=== PATIENT | female | born 1970 | race Caucasian/White ===

== ENCOUNTER 2018-09-03 21:04 | Emergency (ER) | payer OTHER ==
[2018-09-03 21:14] VITALS: TEMP 98.3
--- NOTE | 2018-09-03 22:17 | C.PDOC ---
Addendum entered and electronically signed by Elton Benavidez MD 09/04/18 02:41: Disposition Clinical Impression: DUB (dysfunctional uterine bleeding), Uterine fibroid Disposition: HOME/ ROUTINE Disposition Time: 00:00 Condition: FAIR Additional Instructions: Please return if symptoms recur Instructions: Heavy Periods (DC), Uterine Fibroids (DC) Referrals: [facility] [Outside] [facility] [Outside] Stand Alone Forms: [employer] (Slovak) Original Note: History Of Present Illness 48 y/o F p/w vaginal bleeding x 1 month. States LMP June, then in July, period began and never ended. Reports 10 pads per day. Reports feeling lightheaded and generally weak and lower abdominal cramping. Denies fever, chills, chest pain, dsypnea, nausea, vomiting, dysuria. Had another 3 week period of bleeding months ago but resolved after 3 weeks, did not seek medical care at that time. <Maynor Gooden - Last Filed: 09/03/18 22:22> <Maynor Gooden - Last Filed: 09/03/18 22:22> <Elton Benavidez - Last Filed: 09/04/18 02:40> Time Seen by Provider: 09/03/18 21:23 Chief Complaint (Nursing): Female Genitourinary Past Medical History Vital Signs: Last Vital Signs Temp 98.3 F 09/03/18 21:11 Pulse 85 09/03/18 21:11 Resp 20 09/03/18 21:11 BP 130/82 09/03/18 21:11 Pulse Ox 98 09/03/18 21:11 - Medical History PMH: Asthma, Depression Surgical History: Appendectomy, Cholecystectomy - Social History Hx Tobacco Use: No Hx Alcohol Use: No Hx Substance Use: No - Immunization History Hx Tetanus Toxoid Vaccination: No Hx Influenza Vaccination: No Hx Pneumococcal Vaccination: No <Maynor Gooden - Last Filed: 09/03/18 22:22> Vital Signs: Last Vital Signs Temp 98.3 F 09/03/18 21:11 Pulse 70 09/04/18 00:54 Resp 16 09/04/18 00:54 BP 141/69 09/04/18 00:54 Pulse Ox 98 09/04/18 00:54 Family History: States: No Known Family Hx <Elton Benavidez - Last Filed: 09/04/18 02:40> Review Of Systems Except As Marked, All Systems Reviewed And Found Negative. Constitutional: Negative for: Fever Cardiovascular: Negative for: Chest Pain <Maynor Gooden - Last Filed: 09/03/18 22:22> Physical Exam - Physical Exam Additional Physical Exam Comments: Constitutional: No acute distress. Head: Normocephalic. Atraumatic. Eyes: PERRL. ENT: Moist mucous membranes. Neck: Supple. Cardiovascular: Regular rate. Radial pulse 2+ bilaterally. Chest: No tenderness. Respiratory: Clear to auscultation bilaterally. GI: Soft. Nontender. Nondistended. Back: No CVA tenderness. Musculoskeletal: No tenderness or swelling of extremities. Skin: No rash. Appears pale. Neurologic: Alert, no focal deficit. <Maynor Gooden - Last Filed: 09/03/18 22:22> ED Course And Treatment O2 Sat by Pulse Oximetry: 98 <Maynor Gooden Nancy - Last Filed: 09/03/18 22:22> - Laboratory Results Result Diagrams: 09/03/18 22:48 09/03/18 22:48 <Elton Benavidez - Last Filed: 09/04/18 02:40> Medical Decision Making Medical Decision Making: HR and BP unremarkable. Assess Hb/Hct and US. <Maynor Gooden - Last Filed: 09/03/18 22:22> Disposition <Maynor Gooden - Last Filed: 09/03/18 22:22> Counseled Patient/Family Regarding: Studies Performed, Diagnosis, Need For Followup - Disposition Disposition Time: 00:00 <Elton Benavidez - Last Filed: 09/04/18 02:40> - Disposition Referrals: [facility] [Outside] [facility] [Outside] Disposition: HOME/ ROUTINE Condition: FAIR Additional Instructions: Please return if symptoms recur Instructions: Heavy Periods (DC) Forms: [employer] (Slovak) - Clinical Impression Clinical Impression: DUB (dysfunctional uterine bleeding)
[2018-09-03 22:51] LABS: BASO # 0.1 K/uL (0.0-0.2); BASO % 1.3 % (0.0-2.0); EOS # 0.5 K/uL (0.0-0.7); EOS % 5.1 % (0.0-4.0); HEMOGLOBIN 10.2 g/dL (11.0-16.0); LYMPH # 3.1 K/uL (1.0-4.3); LYMPH % 33.2 % (20.0-40.0); MEAN CELL VOLUME 71.4 fL (81.0-99.0); MEAN CORPUSCULAR HEMOGLOBIN 22.2 pg (27.0-31.0); MEAN CORPUSCULAR HGB CONC 31.1 g/dL (33.0-37.0); MEAN PLATELET VOLUME 8.8 fL (7.2-11.7); MONO # 0.6 K/uL (0.0-0.8); MONO % 6.3 % (0.0-10.0); NEUT % 54.1 % (50.0-75.0); NRBC % 0.1 % (0.0-2.0); RBC 4.61 Mil/uL (3.80-5.20); RED CELL DISTRIBUTION WIDTH 16.2 % (11.5-14.5); WHITE BLOOD COUNT 9.3 K/uL (4.8-10.8)
[2018-09-03 22:53] LABS: HCG,QUALITATIVE URINE NEGATIVE (NEGATIVE)
[2018-09-03 23:01] LABS: SQUAMOUS EPITHIAL 9 /hpf (0-5); URINE BACTERIA RARE (<OCC); URINE BILIRUBIN NEGATIVE (NEGATIVE); URINE BLOOD 3+ (NEGATIVE); URINE CLARITY Hazy (Clear); URINE COLOR Red (YELLOW); URINE GLUCOSE (UA) NORMAL (Normal); URINE LEUKOCYTE ESTERASE NEG Leu/uL (Negative); URINE PROTEIN 1+ mg/dL (NEGATIVE)
[2018-09-03 23:03] LABS: ALB/GLOB RATIO 1.1 (1.0-2.1); ALBUMIN 3.7 g/dL (3.5-5.0); ALT/SGPT 21 U/L (9-52); AST/SGOT 14 U/L (14-36); BLOOD UREA NITROGEN 9 mg/dL (7-17); CALCIUM 8.8 mg/dl (8.6-10.4); GFR NON-AFRICAN AMERICAN > 60
[2018-09-04 02:59] VITALS: BP 122/74; PULSE 81; RESP 20; O2SAT 97
--- NOTE | 2018-09-04 09:25 | US ---
Pelvic ultrasound HISTORY: Vaginal bleeding. COMPARISON: None available. TECHNIQUE: Real-time sonography was performed through the pelvis utilizing transabdominal and transvaginal techniques. Findings: Uterus: 9.5 x 4.3 x 5.9 centimeters. Heterogeneous echotexture. Anteverted. Heterogeneous lesion within the intramural/subserosal fundal region of the uterus measuring 1.3 x 1.0 x 1.0 centimeters concerning for a possible fibroid lesion. Suggestion of complex nabothian cysts noted at the level of the cervix measuring up to 1.1 x 0.9 x 1.1 centimeters. Prominent endometrium measuring up to 1.5 centimeters. Clinical correlation. No free fluid in the pelvic cul-de-sac. Right ovary: 2.1 x 2.6 x 2.1 centimeters. Normal flow. Left ovary: 3.0 x 2.3 x 2.4 centimeters. Normal flow. Heterogeneous cyst measuring 1.7 x 1.1 x 1.7 centimeters. Urine test was negative. Impression: 1. Heterogeneous lesion within the uterus as described above measuring up to 1.3 centimeters which may represent a fibroid lesion. Clinical correlation. 2. Suggestion of complex nabothian cysts at the level of the cervix measuring up to 1.1 centimeters. Clinical correlation. 3. Prominent endometrium measuring up to 1.5 centimeters. Clinical correlation. 4. Heterogeneous 1.7 centimeter left ovarian cyst. Interval follow-up ultrasound may be helpful if clinically indicated. A preliminary report was generated at 1:54 a.m. on 09/04/[address] Maddie Estrada from [employer].
== END 2018-09-04 02:59 | disposition home or self-care (01) ==
LOC: C.ER 21:04
DX: D25.9 Leiomyoma of uterus, unspecified (principal); N93.8 Other specified abnormal uterine and vaginal bleeding